=== PATIENT | male | born 1985 | race Caucasian/White ===

== ENCOUNTER 2022-08-05 05:57 | Emergency (ER) | payer MEDICAID ==
[~2022-08-05] VITALS: Ht 185.4 cm; Wt 115.7 kg
--- NOTE | 2022-08-05 06:40 | NUR ---
PT BIB PD. Pt brought in for [facility] BOOK. Pt reports nausea and back pain from history of bone marrow sx on back. VSS
[2022-08-05 06:49] VITALS: BP_SYST 123
--- NOTE | 2022-08-05 06:50 | NUR ---
at bedside for evaluation.
[2022-08-05] MEDS ORDERED: MORPHINE 4 MG INJ. 4 MG/ML VIAL IVP ONE (07:00)
[2022-08-05] MEDS ORDERED: ONDANSETRON HCL 4 MG/2 ML VIAL IVP ONE (07:00)
--- NOTE | 2022-08-05 07:17 | NUR ---
Report given to Don CUELLAR to assume all care.
--- NOTE | 2022-08-05 07:45 | NUR ---
# 22 gauge angiocath placed to RH. Use of asceptic technique. Opsite placed over site. Blood return noted. Blood for lab drawn from site. Flushed with 10 cc of normal saline. No evidence of infiltration noted. Patient tolerated well.
--- NOTE | 2022-08-05 07:46 | NUR ---
PT MEDICATED TOLERATED WELL. PT REMAINS IN OFFICE AUDITOR AT BEDSIDE.
[2022-08-05 07:50] LABS: BASOPHILS % (AUTO) 0.5 % (0.0-2.0); EOSINOPHILS # (AUTO) 0.1 K/uL (0.0-0.4); HEMATOCRIT 43.5 % (36-54); LYMPHOCYTES # (AUTO) 2.5 K/uL (1.0-5.5); LYMPHOCYTES % (AUTO) 45.7 % (20.5-51.5); MEAN CORPUSCULAR VOLUME 105 fL (79.0-98.0); MONOCYTES # (AUTO) 0.6 K/uL (0.0-1.0); MONOCYTES % (AUTO) 10.5 % (1.7-9.3); NEUTROPHILS # (AUTO) 2.3 K/uL (1.8-7.7); NEUTROPHILS % (AUTO) 42.3 % (40.0-70.0); PLATELET COUNT (AUTO) 107 K/uL (130-430); RED BLOOD CELL COUNT(AUTO) 4.15 MIL/uL (4.2-6.2); RED CELL DISTRIBUTION WIDTH 13.3 % (9.0-15.0); WHITE BLOOD COUNT (AUTO) 5.5 K/uL (4.8-10.8)
--- NOTE | 2022-08-05 08:22 | NUR ---
Pt resting without complaint bed rail up, pulse ox 96%, 83 heart rate.
[2022-08-05 08:27] LABS: CALCIUM 8.9 mg/dL (8.4-11.0); CREATININE 0.89 mg/dL (0.55-1.30); POTASSIUM 4.1 mmol/L (3.5-5.1)
[2022-08-05 08:41] LABS: ALBUMIN 3.1 g/dL (3.4-4.8); TOTAL BILIRUBIN 0.4 mg/dL (0.0-1.0)
--- NOTE | 2022-08-05 08:43 | NUR ---
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 Notified Dr. Nunez of pt. concern.
[2022-08-05 09:29] VITALS: BP_SYST 126
--- NOTE | 2022-08-05 09:29 | NUR ---
Patient given written and verbal discharge instructions and verbalizes understanding. ER MD discussed with patient the results and treatment provided. Patient in stable condition. ID arm band removed. IV catheter removed intact and dressing applied, no active bleeding. Opportunity for questions provided and answered. Medication side effect fact sheet provided.
== END 2022-08-05 09:29 ==
LOC: SED 05:57
DX: Z02.89 Encounter for other administrative examinations (principal); Z85.6 Personal history of leukemia; Z79.899 Other long term (current) drug therapy
CPT/HCPCS: 99284; 96374; 96375; 80053; 85025; 36415; J2405; J2270